=== PATIENT | male | born 1965 | race Caucasian/White ===

== ENCOUNTER 2016-11-25 14:24 | Emergency (ER) | payer SELFPAY ==
[~2016-11-25] VITALS: Ht 172.7 cm; Wt 111.1 kg
[2016-11-25 14:44] VITALS: BP 134/86
[2016-11-25 17:43] LABS: Urine Blood Negative /uL (Negative); Urine Color Brown (Yellow); Urine Glucose Normal (Normal); Urine Ketone Negative (Negative); Urine Mucus FEW (None Seen); Urine Nitrite Negative (Negative); Urine RBC 1 /hpf (0 - 3); Urine Urobilinogen >12.0 mg/dL (Negative); Urine pH 5.5 (5.0-8.0)
[2016-11-25 17:43] LABS: Basophils # (auto) 0 uL; Basophils % (auto) 0.7 % (0.0-2.0); CONDITION Y; Eosinophils # (auto) 0.1 uL; Eosinophils % (auto) 4.4 % (0.0-7.0); Hematocrit 51.4 % (41.0-53.0); Hemoglobin 17.7 g/dL (13.5-17.5); Lymphocytes # (auto) 0.7 uL; Lymphocytes % (auto) 20.6 % (10.0-50.0); Mean Corpuscular Hemoglobin 29.5 pg (28.0-32.0); Mean Corpuscular Hgb Conc. 34.4 g/dL (32.0-36.0); Mean Corpuscular Volume 85.9 fL (80.0-100.0); Mean Platelet Volume 10.5 fL (7.4-10.4); Monocytes # (auto) 0.2 uL; Monocytes % (auto) 6.2 % (0.0-12.0); Neutrophils # (auto) 2.2 uL; Neutrophils % (auto) 68.1 % (37.0-80.0); Platelet Count (auto) 69 10^3/uL (140-450); Red Cell Distribution Width 13.5 % (11.6-16.0); White Blood Cell 3.3 10^3/uL (4.4-10.8)
[2016-11-25 17:47] LABS: Urine Bilirubin Negative (Negative)
[2016-11-25 17:57] LABS: Albumin 3.5 g/dL (3.4-5.0); BUN/Creatinine Ratio 14.3; Calcium 8.7 mg/dL (8.5-10.1)
[2016-11-25 17:59] LABS: Bilirubin, Total 3.9 mg/dL (0.2-1.0); Total Protein 7.1 g/dL (6.4-8.2)
[2016-11-25 18:05] LABS: Potassium 4.2 mmol/L (3.5-5.1)
== END 2016-11-26 01:48 | disposition left against medical advice (07) ==
LOC: ER 14:29
DX: M79.89 Other specified soft tissue disorders (principal); Z53.21 Procedure and treatment not carried out due to patient leaving prior to being seen by health care provider
CPT/HCPCS: 36415; 80053; 81001; 85025

== ENCOUNTER 2017-09-04 12:11 | Emergency (ER) | payer SELFPAY ==
[~2017-09-04] VITALS: Ht 175.3 cm; Wt 103.9 kg
[2017-09-04] MEDS ORDERED: KETOROLAC TROMETH 30 MG/ML 1ML VIAL IV ONE (12:30)
[2017-09-04] MEDS ORDERED: ONDANSETRON HCL 4 MG/2 ML VIAL IV ONE (12:30)
[2017-09-04 12:37] VITALS: BP 160/92
[2017-09-04 12:40] LABS: Basophils # (auto) 0 uL; Basophils % (auto) 0.4 % (0.0-2.0); Eosinophils # (auto) 0 uL; Eosinophils % (auto) 0.7 % (0.0-7.0); Hematocrit 51.7 % (41.0-53.0); Hemoglobin 17.6 g/dL (13.5-17.5); Lymphocytes # (auto) 0.9 uL; Lymphocytes % (auto) 12.4 % (10.0-50.0); Mean Corpuscular Hemoglobin 29.9 pg (28.0-32.0); Mean Corpuscular Hgb Conc. 34.2 g/dL (32.0-36.0); Mean Corpuscular Volume 87.4 fL (80.0-100.0); Monocytes # (auto) 0.5 uL; Monocytes % (auto) 6.2 % (0.0-12.0); Neutrophils # (auto) 5.9 uL; Neutrophils % (auto) 80.3 % (37.0-80.0); Platelet Count (auto) 200 10^3/uL (140-450); Red Blood Cells 5.91 10^6/uL (4.5-5.90); Red Cell Distribution Width 12.8 % (11.8-14.3); White Blood Cell 7.4 10^3/uL (4.4-10.8)
[2017-09-04] MEDS ORDERED: SODIUM CHLORIDE 0.9% 1,000 ML IV ONE (12:45)
[2017-09-04 13:04] LABS: Albumin 4.2 g/dL (3.4-5.0); BUN/Creatinine Ratio 16.8; Calcium 9.2 mg/dL (8.5-10.1); Potassium 4.4 mmol/L (3.5-5.1)
[2017-09-04 13:07] LABS: Bilirubin, Total 1.4 mg/dL (0.2-1.0); Total Protein 7.8 g/dL (6.4-8.2)
[2017-09-04 14:18] LABS: Urine Bacteria NONE SEEN /hpf (None Seen); Urine Blood Negative /uL (Negative); Urine Specific Gravity 1.024 (1.001-1.035); Urine Sperm PRESENT /hpf (None Seen); Urine WBC <1 /hpf (0 - 3)
== END 2017-09-04 14:40 | disposition home or self-care (01) ==
LOC: ER 12:11
DX: N20.0 Calculus of kidney (principal); F17.210 Nicotine dependence, cigarettes, uncomplicated
CPT/HCPCS: 36415; 74176; 80053; 81001; 85025; 96361; 96374; 96375; 99285; J1885; J2405; J7030

== ENCOUNTER 2021-02-21 18:03 | Inpatient (IN) | payer MEDICAID, OTHER ==
[~2021-02-21] VITALS: Ht 170.2 cm; Wt 116.0 kg
[2021-02-21 18:47] LABS: Eosinophils # (auto) 0.2 10 ^3/uL (0-0.8); Lymphocytes # (auto) 1.5 10 ^3/uL (0.4-5.4); Neutrophils # (auto) 3.9 10 ^3/uL (1.6-8.6)
[2021-02-21 18:48] LABS: Basophils # (auto) 0.1 10 ^3/uL (0-0.2); Basophils % (auto) 1.1 % (0.0-2.0); Eosinophils % (auto) 3.4 % (0.0-7.0); Hemoglobin 18.8 g/dL (13.5-17.5); Lymphocytes % (auto) 23.5 % (10.0-50.0); Mean Corpuscular Hemoglobin 29.8 pg (28.0-32.0); Mean Corpuscular Hgb Conc. 33.3 g/dL (32.0-36.0); Mean Corpuscular Volume 89.6 fL (80.0-100.0); Monocytes # (auto) 0.7 10 ^3/uL (0-1.3); Monocytes % (auto) 11.4 % (0.0-12.0); Neutrophils % (auto) 60.6 % (37.0-80.0); Nucleated Red Blood Cells % 0.2 %; Red Blood Cells 6.32 10^6/uL (4.5-5.90); Red Cell Distribution Width 12.9 % (11.8-14.3); White Blood Cell 6.5 10^3/uL (4.4-10.8)
[2021-02-21 18:49] LABS: Hematocrit 56.6 % (41.0-53.0)
[2021-02-21 19:03] LABS: Albumin 3.8 g/dL (3.4-5.0); Calcium 9.6 mg/dL (8.5-10.1)
[2021-02-21 19:11] LABS: BUN/Creatinine Ratio 12.2; Bilirubin, Total 1.3 mg/dL (0.2-1.0); Total Protein 8.3 g/dL (6.4-8.2)
[2021-02-21] MEDS ORDERED: InsuLIN REG 1unit/0.01ml Soln (100units/ml) IV ONE (21:15)
[2021-02-21] MEDS ORDERED: SODIUM CHLORIDE 0.9% 1,000 ML IV ONE (21:15)
[2021-02-22] MEDS ORDERED: InsuLIN REG 1unit/0.01ml Soln (100units/ml) IV ONE (02:45)
[2021-02-22 03:39] LABS: BUN/Creatinine Ratio 13.9; Calcium 8.8 mg/dL (8.5-10.1); Potassium 3.7 mmol/L (3.5-5.1)
[2021-02-22] MEDS ORDERED: ACETAMINOPHEN 325 MG TAB PO PRN (05:30)
[2021-02-22] MEDS ORDERED: ONDANSETRON HCL 4 MG/2 ML VIAL IV PRN (05:30)
[2021-02-22] MEDS ORDERED: TEMAZEPAM 15 MG CAP PO PRN (05:30)
[2021-02-22] MEDS ORDERED: DEXTROSE (50%) 50ML SYRG IV PRN (05:30)
[2021-02-22] MEDS: SODIUM CHLORIDE 0.9% 1,000 ML IV SCH ×2 (06:24→22:00)
[2021-02-22] MEDS: ACCU-CHEK COMFORT CURVE STRIP VI SCH ×4 (08:27→20:02)
[2021-02-22] MEDS: InsuLIN REG 1unit/0.01ml Soln (100units/ml) SC SCH ×4 (08:30→20:03)
[2021-02-22] MEDS: amLODIPine BESYLATE 5 MG TAB PO SCH (10:00)
[2021-02-22] MEDS: PANTOPRAZOLE 40 MG TAB PO SCH (10:00)
[2021-02-22 22:23] VITALS: BP 144/89
[2021-02-22 22:37] VITALS: BP 154/94
[2021-02-23] MEDS: ACCU-CHEK COMFORT CURVE STRIP VI SCH ×6 (03:27→23:35)
[2021-02-23] MEDS: InsuLIN REG 1unit/0.01ml Soln (100units/ml) SC SCH ×6 (03:30→23:35)
[2021-02-23 05:00] VITALS: BP 120/69
[2021-02-23 06:53] LABS: Basophils # (auto) 0 10 ^3/uL (0-0.2); Basophils % (auto) 0.8 % (0.0-2.0); Eosinophils # (auto) 0.3 10 ^3/uL (0-0.8); Eosinophils % (auto) 5.4 % (0.0-7.0); Hematocrit 50.7 % (41.0-53.0); Hemoglobin 17.6 g/dL (13.5-17.5); Lymphocytes # (auto) 1.8 10 ^3/uL (0.4-5.4); Lymphocytes % (auto) 30.8 % (10.0-50.0); Mean Corpuscular Hemoglobin 30.5 pg (28.0-32.0); Mean Corpuscular Hgb Conc. 34.7 g/dL (32.0-36.0); Mean Corpuscular Volume 87.8 fL (80.0-100.0); Monocytes # (auto) 0.7 10 ^3/uL (0-1.3); Monocytes % (auto) 12.2 % (0.0-12.0); Neutrophils # (auto) 3.1 10 ^3/uL (1.6-8.6); Neutrophils % (auto) 50.8 % (37.0-80.0); Nucleated Red Blood Cells % 0.1 %; Red Blood Cells 5.77 10^6/uL (4.5-5.90); Red Cell Distribution Width 12.7 % (11.8-14.3)
[2021-02-23 07:06] LABS: BUN/Creatinine Ratio 19.4; Calcium 8.6 mg/dL (8.5-10.1); Potassium 3.5 mmol/L (3.5-5.1)
[2021-02-23] MEDS: SODIUM CHLORIDE 0.9% 1,000 ML IV SCH (08:40)
[2021-02-23] MEDS: amLODIPine BESYLATE 5 MG TAB PO SCH (08:59)
[2021-02-23] MEDS: PANTOPRAZOLE 40 MG TAB PO SCH (08:59)
[2021-02-23 09:00] VITALS: BP 125/75
[2021-02-23] MEDS ORDERED: INSULIN LANTUS (GLARGINE) 1 /0.01ml (100units/ml) SC ONE (12:00)
[2021-02-23 13:00] VITALS: BP 153/96
[2021-02-23] MEDS ORDERED: DEXTROSE (50%) 50ML SYRG IV PRN (13:30)
[2021-02-23] MEDS ORDERED: LOSARTAN POTASSIUM 25 MG TAB PO ONE (13:30)
[2021-02-23 17:00] VITALS: BP 130/66
[2021-02-23 17:09] LABS: Urine Bacteria NONE SEEN /hpf (None Seen); Urine Blood Negative /uL (Negative); Urine Specific Gravity 1.026 (1.001-1.035); Urine WBC 3 /hpf (0 - 3)
[2021-02-23] MEDS: metFORMIN HYDROCHLORIDE 500 MG TAB PO SCH (17:47)
[2021-02-23] MEDS: glipiZIDE 5 MG TAB PO SCH (17:48)
[2021-02-23 19:22] LABS: Amphetamine Screen, Urine POSITIVE (NEGATIVE); Barbiturate Scree,Urine NEGATIVE (NEGATIVE); Benzodiazephine Screen, Urine NEGATIVE (NEGATIVE); Cannabinoid Screen, Urine NEGATIVE (NEGATIVE); Cocaine Screen, Urine NEGATIVE (NEGATIVE); Opiate Scree,Urine NEGATIVE (NEGATIVE); Phencyclidine Screen, Urine NEGATIVE (NEGATIVE)
[2021-02-23 22:00] VITALS: BP 152/98
[2021-02-23] MEDS ORDERED: INSULIN LANTUS (GLARGINE) 1 /0.01ml (100units/ml) SC SCH (22:00)
[2021-02-24 05:00] VITALS: BP 145/101
[2021-02-24] MEDS: InsuLIN REG 1unit/0.01ml Soln (100units/ml) SC SCH ×2 (06:03→11:50)
[2021-02-24] MEDS: ACCU-CHEK COMFORT CURVE STRIP VI SCH ×2 (06:03→11:49)
[2021-02-24] MEDS: glipiZIDE 5 MG TAB PO SCH (06:49)
[2021-02-24 07:04] LABS: BUN/Creatinine Ratio 18.1; Calcium 8.6 mg/dL (8.5-10.1); Potassium 3.9 mmol/L (3.5-5.1)
[2021-02-24] MEDS: metFORMIN HYDROCHLORIDE 500 MG TAB PO SCH (08:04)
[2021-02-24] MEDS: PANTOPRAZOLE 40 MG TAB PO SCH (08:30)
[2021-02-24 09:00] VITALS: BP 134/91
[2021-02-24] MEDS ORDERED: LOSARTAN POTASSIUM 25 MG TAB PO SCH (10:00)
[2021-02-24 13:20] VITALS: BP 146/104
== END 2021-02-24 14:10 | disposition home or self-care (01) | DRG 420 ==
LOC: ER 18:09 → OVERFLOW 02-22 05:20 → WEST WING 02-22 19:35
PROVIDERS: ADMIT Nurse Practitioner; ATTEND Internal Medicine
DX: E11.65 Type 2 diabetes mellitus with hyperglycemia (principal); N17.0 Acute kidney failure with tubular necrosis; K76.0 Fatty (change of) liver, not elsewhere classified; Z68.41 Body mass index [BMI] 40.0-44.9, adult; I10 Essential (primary) hypertension; E66.01 Morbid (severe) obesity due to excess calories; F17.210 Nicotine dependence, cigarettes, uncomplicated; Z82.49 Family history of ischemic heart disease and other diseases of the circulatory system
CPT/HCPCS: 36415; 71045; 74176; 80048; 80053; 80307; 81001; 82010; 82962; 83036; 83690; 83880; 85025; 87426; 93005; 96361; 96374; 96376; G0378; J1815

== ENCOUNTER 2021-10-17 20:55 | Emergency (ER) | payer MEDICAID ==
[~2021-10-17] VITALS: Ht 167.6 cm; Wt 102.1 kg
[2021-10-17 20:57] VITALS: BP 126/93
[2021-10-18] MEDS ORDERED: CIPR-273 PO (01:20)
== END 2021-10-18 01:35 | disposition home or self-care (01) ==
LOC: ER 20:55
DX: H60.91 Unspecified otitis externa, right ear (principal); F17.210 Nicotine dependence, cigarettes, uncomplicated

== ENCOUNTER 2022-03-21 22:52 | Emergency (ER) | payer MEDICAID ==
[~2022-03-21] VITALS: Ht 170.2 cm; Wt 104.0 kg
[~2022-03-21 22:52] MED LIST: CIPR-273 PO
[2022-03-22] MEDS ORDERED: CIPR1SUS8 OT (00:55)
[2022-03-22] MEDS ORDERED: AMOX-277 PO (00:55)
[2022-03-22] MEDS ORDERED: HYDROcodone-ACET 5/325MG TAB PO ONE (01:00)
[2022-03-22 02:30] VITALS: BP 151/109
== END 2022-03-22 02:33 | disposition home or self-care (01) ==
LOC: ER 22:52
DX: H60.91 Unspecified otitis externa, right ear (principal); F17.210 Nicotine dependence, cigarettes, uncomplicated; H66.91 Otitis media, unspecified, right ear

== ENCOUNTER 2023-03-23 13:52 | Inpatient (IN) | payer MEDICAID ==
[~2023-03-23] VITALS: Ht 170.2 cm; Wt 102.4 kg
[~2023-03-23 13:52] MED LIST changes: +AMOX875T4 PO; +CIPR1SUS8 OT
[2023-03-23] MEDS ORDERED: MORPHINE SULFATE 4 MG/ML SYR/VIAL IV ONE (14:30)
[2023-03-23] MEDS ORDERED: ONDANSETRON HCL 4 MG/2 ML VIAL IV ONE (14:30)
[2023-03-23] MEDS ORDERED: SODIUM CHLORIDE 0.9% 1,000 ML IVB ONE (14:30)
[2023-03-23 15:00] LABS: Basophils # (auto) 0.1 10 ^3/uL (0-0.2); Eosinophils # (auto) 0.2 10 ^3/uL (0-0.8); Mean Corpuscular Hemoglobin 29.7 pg (28.0-32.0)
[2023-03-23 15:03] LABS: Basophils % (auto) 0.7 % (0.0-2.0); Eosinophils % (auto) 1.5 % (0.0-7.0); Hemoglobin 19.1 g/dL (13.5-17.5); Lymphocytes # (auto) 2.1 10 ^3/uL (0.4-5.4); Lymphocytes % (auto) 20.1 % (10.0-50.0); Mean Corpuscular Hgb Conc. 33.8 g/dL (32.0-36.0); Monocytes % (auto) 9.3 % (0.0-12.0); Neutrophils # (auto) 7.2 10 ^3/uL (1.6-8.6); Neutrophils % (auto) 68.4 % (37.0-80.0); Nucleated Red Blood Cells % 0.4 %; Red Blood Cells 6.43 10^6/uL (4.5-5.90); Red Cell Distribution Width 12.9 % (11.8-14.3); White Blood Cell 10.6 10^3/uL (4.4-10.8)
[2023-03-23 15:08] LABS: Hematocrit 56.6 % (41.0-53.0)
[2023-03-23 15:13] LABS: Alanine Aminotransferase 94 U/L (7-40); Albumin 4.3 g/dL (3.2-4.8); Alkaline Phosphatase 109 U/L (46-116); Anion Gap 11 (5-15); Aspartate Aminotransferase 44 U/L (13-40); BUN/Creatinine Ratio 16.1 (10.0-20.0); Blood Alcohol 4.5 mg/dL (<10); Blood Urea Nitrogen 28 mg/dL (9-23); Calcium 9.9 mg/dL (8.7-10.4); Carbon Dioxide 21 mmol/L (20-30); Chloride 93 mmol/L (98-107); Lipase 73 U/L (12-53); Potassium 4.7 mmol/L (3.5-5.1); Sodium 125 mmol/L (136-145)
[2023-03-23 15:14] LABS: Bilirubin, Total 1.6 mg/dL (0.2-1.0); Total Protein 8.2 g/dL (5.7-8.2)
[2023-03-23 15:16] LABS: INR 1.05 (0.9-1.15); Partial Thromboplastin Time 23.6 SEC (24.5-34.5)
[2023-03-23 15:33] LABS: Glucose 720 mg/dL (74-106)
[2023-03-23] MEDS ORDERED: DEXTROSE (50%) 50ML SYRG IV PRN (17:30)
[2023-03-23] MEDS ORDERED: NITROGLYCERIN 0.4 MG SL TAB SL PRN (17:30)
[2023-03-23] MEDS ORDERED: hydrALAZINE HCL 20 MG/ML VL IV PRN (17:45)
[2023-03-23 18:02] LABS: Base Excess -3.6 mmol/L (-2.0-2.0)
[2023-03-23 18:14] LABS: Anion Gap 11 (5-15); Carbon Dioxide 19 mmol/L (20-30); Chloride 96 mmol/L (98-107); Sodium 126 mmol/L (136-145)
[2023-03-23 18:15] LABS: Calcium 9.2 mg/dL (8.7-10.4)
[2023-03-23 18:20] LABS: BUN/Creatinine Ratio 16.3 (10.0-20.0); Blood Urea Nitrogen 28 mg/dL (9-23)
[2023-03-23 18:51] LABS: Glucose 696 mg/dL (74-106); Potassium 5.7 mmol/L (3.5-5.1)
[2023-03-23] MEDS: SODIUM CHLORIDE 0.9% 1,000 ML IV SCH ×3 (19:10→23:46)
[2023-03-23 19:56] VITALS: PULSE 102; RESP 20; O2SAT 91
[2023-03-23] MEDS: INSULIN DRIP 100 UNIT/100ML 100 ML IV SCH (20:22)
[2023-03-23] MEDS: ACCU-CHEK COMFORT CURVE STRIP VI SCH ×5 (20:24→23:46)
[2023-03-23] MEDS ORDERED: SODIUM CHLORIDE 0.9% 1,000 ML IV SCH (21:30)
[2023-03-23] MEDS ORDERED: MORPHINE SULFATE INJ 2 MG/ml SYRG IV PRN (21:45)
[2023-03-23] MEDS: ONDANSETRON HCL 4 MG/2 ML VIAL IV PRN (21:46)
[2023-03-23] MEDS: MORPHINE SULFATE INJ 2 MG/ml SYRG IV PRN (21:46)
[2023-03-23 21:49] LABS: Chloride 96 mmol/L (98-107); Potassium 5.2 mmol/L (3.5-5.1); Sodium 129 mmol/L (136-145)
[2023-03-23 21:50] LABS: Anion Gap 15 (5-15); Carbon Dioxide 18 mmol/L (20-30)
[2023-03-23 21:51] LABS: Calcium 9.4 mg/dL (8.7-10.4)
[2023-03-23 21:57] LABS: BUN/Creatinine Ratio 15.9 (10.0-20.0); Blood Urea Nitrogen 29 mg/dL (9-23)
[2023-03-23 22:18] LABS: Glucose 702 mg/dL (74-106)
[2023-03-23 22:29] LABS: Amphetamine Screen, Urine Pos (NEGATIVE); Barbiturate Scree,Urine Neg (NEGATIVE); Benzodiazephine Screen, Urine Neg (NEGATIVE); Cannabinoid Screen, Urine Neg (NEGATIVE); Cocaine Screen, Urine Neg (NEGATIVE); Opiate Scree,Urine Neg (NEGATIVE); Phencyclidine Screen, Urine Neg (NEGATIVE)
[2023-03-23 22:34] LABS: Urine Bacteria NONE SEEN /hpf (None Seen); Urine Blood Negative /uL (Negative); Urine Clarity Clear (Clear); Urine Color Colorless (Yellow); Urine Protein, UAD Negative (Negative); Urine Specific Gravity 1.028 (1.001-1.035); Urine Urobilinogen Normal (Negative); Urine WBC 1 /hpf (0 - 3)
[2023-03-24 00:11] LABS: BUN/Creatinine Ratio 18.3 (10.0-20.0); Blood Urea Nitrogen 30 mg/dL (9-23)
[2023-03-24] MEDS ORDERED: hydrALAZINE HCL 20 MG/ML VL IV PRN (00:15)
[2023-03-24 01:42] LABS: Anion Gap 9 (5-15); Carbon Dioxide 23 mmol/L (20-30); Chloride 103 mmol/L (98-107); Potassium 4.1 mmol/L (3.5-5.1); Sodium 135 mmol/L (136-145)
[2023-03-24 01:46] LABS: Glucose 583 mg/dL (74-106)
[2023-03-24] MEDS: ACCU-CHEK COMFORT CURVE STRIP VI SCH ×15 (01:47→22:30)
[2023-03-24 02:43] LABS: Chloride 105 mmol/L (98-107); Potassium 4.2 mmol/L (3.5-5.1); Sodium 137 mmol/L (136-145)
[2023-03-24 02:44] LABS: Anion Gap 9 (5-15); Carbon Dioxide 23 mmol/L (20-30)
[2023-03-24 02:45] LABS: Calcium 9.4 mg/dL (8.7-10.4)
[2023-03-24] MEDS: ONDANSETRON HCL 4 MG/2 ML VIAL IV PRN (02:46)
[2023-03-24] MEDS: MORPHINE SULFATE INJ 2 MG/ml SYRG IV PRN ×2 (02:46→19:51)
[2023-03-24 02:50] LABS: BUN/Creatinine Ratio 17.3 (10.0-20.0); Blood Urea Nitrogen 26 mg/dL (9-23)
[2023-03-24 03:22] LABS: Glucose 487 mg/dL (74-106)
[2023-03-24] MEDS ORDERED: HYDROmorphone HCL 2 MG/ML VL/or syr IV PRN (04:00)
[2023-03-24] MEDS: HYDROmorphone HCL 2 MG/ML VL/or syr IV PRN ×4 (04:27→20:41)
[2023-03-24 05:05] LABS: Basophils # (auto) 0 10 ^3/uL (0-0.2); Basophils % (auto) 0.3 % (0.0-2.0); Eosinophils # (auto) 0 10 ^3/uL (0-0.8); Monocytes # (auto) 1.1 10 ^3/uL (0-1.3); Monocytes % (auto) 7.4 % (0.0-12.0)
[2023-03-24 05:06] LABS: Hematocrit 53.9 % (41.0-53.0); Hemoglobin 18.3 g/dL (13.5-17.5); Lymphocytes # (auto) 1.1 10 ^3/uL (0.4-5.4); Lymphocytes % (auto) 7.8 % (10.0-50.0); Mean Corpuscular Hemoglobin 29.3 pg (28.0-32.0); Mean Corpuscular Hgb Conc. 33.9 g/dL (32.0-36.0); Mean Corpuscular Volume 86.6 fL (80.0-100.0); Neutrophils # (auto) 12.3 10 ^3/uL (1.6-8.6); Neutrophils % (auto) 84.5 % (37.0-80.0); Red Blood Cells 6.23 10^6/uL (4.5-5.90); Red Cell Distribution Width 12.7 % (11.8-14.3); White Blood Cell 14.6 10^3/uL (4.4-10.8)
[2023-03-24 05:15] LABS: Alanine Aminotransferase 76 U/L (7-40); Albumin 3.9 g/dL (3.2-4.8); Alkaline Phosphatase 87 U/L (46-116); Aspartate Aminotransferase 34 U/L (13-40); BUN/Creatinine Ratio 16.5 (10.0-20.0); Bilirubin, Total 1.4 mg/dL (0.2-1.0); Blood Urea Nitrogen 23 mg/dL (9-23); Calcium 9.1 mg/dL (8.5-10.1); Chloride 108 mmol/L (98-107); Cholesterol 167 mg/dL (< 200); HDL Cholesterol 39 mg/dL (40-59); LDL Cholesterol 108 mg/dL (< 100); Potassium 3.9 mmol/L (3.5-5.1); Sodium 141 mmol/L (136-145); Total Protein 7.3 g/dL (5.7-8.2); Triglycerides 165 mg/dL (< 150)
[2023-03-24 05:45] LABS: Glucose 411 mg/dL (74-106)
[2023-03-24] MEDS ORDERED: hydrALAZINE HCL 20 MG/ML VL IV ONE (06:15)
[2023-03-24] MEDS: SODIUM CHLORIDE 0.9% 1,000 ML IV SCH ×3 (06:23→20:40)
[2023-03-24] MEDS: amLODIPine BESYLATE 5 MG TAB PO SCH ×3 (06:44→11:35)
[2023-03-24 07:56] LABS: Anion Gap 9 (5-15); Carbon Dioxide 24 mmol/L (20-30)
[2023-03-24 08:00] VITALS: PULSE 119; RESP 18; O2SAT 94
[2023-03-24] MEDS ORDERED: PANTOPRAZOLE 40 MG/10 ML VIAL INJ IV SCH (10:00)
[2023-03-24] MEDS ORDERED: amLODIPine BESYLATE 5 MG TAB PO SCH (10:00)
[2023-03-24] MEDS ORDERED: METOPROLOL TARTRATE 25 MG TAB PO ONE (11:15)
[2023-03-24] MEDS: INSULIN DRIP 100 UNIT/100ML 100 ML IV SCH (12:44)
[2023-03-24 19:30] VITALS: PULSE 101; RESP 21; O2SAT 94
[2023-03-24 20:40] LABS: Chloride 115 mmol/L (98-107); Potassium 4.2 mmol/L (3.5-5.1); Sodium 145 mmol/L (136-145)
[2023-03-24 20:41] LABS: Anion Gap 11 (5-15); Calcium 8.7 mg/dL (8.5-10.1); Carbon Dioxide 19 mmol/L (20-30)
[2023-03-24 20:46] LABS: BUN/Creatinine Ratio 18.9 (10.0-20.0); Blood Urea Nitrogen 31 mg/dL (9-23); Glucose 249 mg/dL (74-106)
[2023-03-24] MEDS: ATORVASTATIN 20 MG TAB PO SCH (22:53)
[2023-03-25] VITALS (39 sets, daily range): BP systolic 60–152; BP diastolic 30–104; PULSE 70–125; RESP 11–58; TEMP 98.7–100.4; O2SAT 50–96
[2023-03-25] MEDS ORDERED: PANTOPRAZOLE 40 MG/10 ML VIAL INJ IV ONE (01:00)
[2023-03-25 02:09] LABS: Basophils # (auto) 0 10 ^3/uL (0-0.2); Basophils % (auto) 0.1 % (0.0-2.0); Eosinophils # (auto) 0 10 ^3/uL (0-0.8); Hemoglobin 18.8 g/dL (13.5-17.5); Monocytes # (auto) 0.8 10 ^3/uL (0-1.3); Neutrophils # (auto) 8.9 10 ^3/uL (1.6-8.6); White Blood Cell 10.6 10^3/uL (4.4-10.8)
[2023-03-25 02:11] LABS: Mean Corpuscular Hemoglobin 29.9 pg (28.0-32.0); Mean Corpuscular Hgb Conc. 33.2 g/dL (32.0-36.0); Mean Corpuscular Volume 90.2 fL (80.0-100.0); Monocytes % (auto) 7.1 % (0.0-12.0); Neutrophils % (auto) 83.8 % (37.0-80.0); Nucleated Red Blood Cells % 0.3 %; Red Blood Cells 6.28 10^6/uL (4.5-5.90); Red Cell Distribution Width 13.1 % (11.8-14.3)
[2023-03-25 02:12] LABS: Hematocrit 56.6 % (41.0-53.0)
[2023-03-25] MEDS ORDERED: ACETAMINOPHEN 325 MG TAB PO PRN (02:30)
[2023-03-25] MEDS ORDERED: VANCOMYCIN 1GM/250ML 250 ML IV ONE (02:30)
[2023-03-25] MEDS ORDERED: LACTATED RINGER'S 1,000 ML IV ONE (02:30)
[2023-03-25] MEDS ORDERED: PIPERACILLIN-TAZOB 3.375GM 100 ML IV ONE (02:30)
[2023-03-25 02:41] LABS: Base Excess -12.2 mmol/L (-2.0-2.0)
[2023-03-25] MEDS: LACTATED RINGER'S 1,000 ML IV SCH ×3 (03:11→20:23)
[2023-03-25] MEDS ORDERED: OCTREOTIDE ACETATE 500 MCG/ML VL ONE (03:17)
[2023-03-25] MEDS: OCTREOTIDE ACETATE 500 MCG in SODIUM CHL 0.9% 99 ML IV SCH ×3 (03:20→20:23)
[2023-03-25 03:45] LABS: Lactic Acid w/Reflex 9.5 mmol/L (0.4-2.0)
[2023-03-25] MEDS: ACCU-CHEK COMFORT CURVE STRIP VI SCH ×12 (04:00→22:37)
[2023-03-25] MEDS: InsuLIN REG 1unit/0.01ml Soln (100units/ml) SC SCH ×2 (04:20→08:03)
[2023-03-25 05:39] LABS: Basophils # (auto) 0 10 ^3/uL (0-0.2); Basophils % (auto) 0.1 % (0.0-2.0); Eosinophils # (auto) 0 10 ^3/uL (0-0.8); Lymphocytes # (auto) 0.8 10 ^3/uL (0.4-5.4)
[2023-03-25 05:42] LABS: Hemoglobin 17.9 g/dL (13.5-17.5); Lymphocytes % (auto) 9.3 % (10.0-50.0); Mean Corpuscular Hemoglobin 29.8 pg (28.0-32.0); Mean Corpuscular Hgb Conc. 32.5 g/dL (32.0-36.0); Mean Corpuscular Volume 91.8 fL (80.0-100.0); Monocytes # (auto) 0.6 10 ^3/uL (0-1.3); Monocytes % (auto) 7.6 % (0.0-12.0); Neutrophils # (auto) 7.1 10 ^3/uL (1.6-8.6); Nucleated Red Blood Cells % 0.3 %; Red Blood Cells 5.99 10^6/uL (4.5-5.90); Red Cell Distribution Width 13.3 % (11.8-14.3); White Blood Cell 8.5 10^3/uL (4.4-10.8)
[2023-03-25 05:46] LABS: Base Excess -8.3 mmol/L (-2.0-2.0)
[2023-03-25] MEDS ORDERED: SODIUM BICARBONATE 8.4 % INJ 50ML VIAL IV ONE (06:00)
[2023-03-25 06:16] LABS: Alanine Aminotransferase 94 U/L (7-40); Albumin 3.1 g/dL (3.2-4.8); Alkaline Phosphatase 73 U/L (46-116); Anion Gap 15 (5-15); Aspartate Aminotransferase 159 U/L (13-40); BUN/Creatinine Ratio 16.4 (10.0-20.0); Blood Urea Nitrogen 33 mg/dL (9-23); Calcium 8.2 mg/dL (8.7-10.4); Carbon Dioxide 12 mmol/L (20-30); Chloride 112 mmol/L (98-107); Potassium 5.4 mmol/L (3.5-5.1)
[2023-03-25 06:17] LABS: Bilirubin, Total 6.5 mg/dL (0.2-1.0); Total Protein 5.9 g/dL (5.7-8.2)
[2023-03-25 06:38] LABS: Sodium 139 mmol/L (136-145)
[2023-03-25 06:41] LABS: Glucose 424 mg/dL (74-106)
[2023-03-25] MEDS ORDERED: InsuLIN REG 1unit/0.01ml Soln (100units/ml) SC ONE (07:00)
[2023-03-25] MEDS ORDERED: ACCU-CHEK COMFORT CURVE STRIP VI ONE (07:00)
[2023-03-25] MEDS: HYDROmorphone HCL 2 MG/ML VL/or syr IV PRN ×3 (07:52→16:43)
[2023-03-25] MEDS: INSULIN LANTUS (GLARGINE) 1 /0.01ml (100units/ml) SC SCH ×2 (08:02→22:00)
[2023-03-25] MEDS: PANTOPRAZOLE 40 MG/10 ML VIAL INJ IV SCH ×2 (09:37→22:37)
[2023-03-25 09:40] LABS: Hemoglobin 17.8 g/dL (13.5-17.5); Mean Corpuscular Hemoglobin 29.9 pg (28.0-32.0)
[2023-03-25] MEDS: INSULIN DRIP 100 UNIT/100ML 100 ML IV SCH (09:40)
[2023-03-25 09:42] LABS: Hematocrit 52.8 % (41.0-53.0); Mean Corpuscular Hgb Conc. 33.7 g/dL (32.0-36.0); Mean Corpuscular Volume 88.8 fL (80.0-100.0); Red Blood Cells 5.95 10^6/uL (4.5-5.90); Red Cell Distribution Width 12.9 % (11.8-14.3); White Blood Cell 7.6 10^3/uL (4.4-10.8)
[2023-03-25 09:46] LABS: Basophils % (manual) 0 (0.0-2.0); Blast Cells 0; Eosinophils % (manual) 0 (0-7); Myelocytes % 0; Promyelocytes % 0; Reactive Lymphocytes 0
[2023-03-25 09:49] LABS: Chloride 113 mmol/L (98-107); Potassium 5.1 mmol/L (3.5-5.1)
[2023-03-25 09:50] LABS: Anion Gap 13 (5-15); Calcium 8.5 mg/dL (8.5-10.1); Carbon Dioxide 21 mmol/L (20-30)
[2023-03-25 09:52] LABS: INR 1.31 (0.9-1.15); Partial Thromboplastin Time 29.4 SEC (24.5-34.5); Prothrombin Time 13.5 sec (9.3-11.8)
[2023-03-25 09:55] LABS: BUN/Creatinine Ratio 21.7 (10.0-20.0)
[2023-03-25] MEDS: amLODIPine BESYLATE 5 MG TAB PO SCH (10:00)
[2023-03-25 10:15] LABS: Blood Urea Nitrogen 43 mg/dL (9-23); Glucose 286 mg/dL (74-106); Sodium 147 mmol/L (136-145)
[2023-03-25] MEDS ORDERED: CLINIMIX PER PHARMACY 0 ML IV SCH (10:15)
[2023-03-25 11:02] LABS: Band Neutrophils % (manual) 39; Lymphocytes % (manual) 14 (10.0-50.0); Metamyelocytes % 2; Monocytes % (manual) 8 (0-12); Platelet Estimate Adequate; RBC Morphology Normal
[2023-03-25 12:01] LABS: Magnesium 1.9 mg/dL (1.6-2.6); Phosphorus 3.4 mg/dL (2.4-5.1)
[2023-03-25 15:20] LABS: COVID19 ANTIGEN SOFIA FIA NEGATIVE (NEGATIVE)
[2023-03-25] MEDS: DEXTROSE (50%) 50ML SYRG IV PRN ×3 (18:06→21:36)
[2023-03-25] MEDS ORDERED: AMINO ACID INFUSION IN D10W 1,000 ML IV NR (20:00)
[2023-03-25] MEDS: ATORVASTATIN 20 MG TAB PO SCH (22:00)
[2023-03-25] MEDS ORDERED: D5W 5% 1,000 ML IV SCH (22:30)
[2023-03-25] MEDS ORDERED: SUCCINYLCHOLINE CHLORIDE 20 MG/ML 10ML VIAL IV ONE ×2 (22:47→23:45)
[2023-03-25] MEDS ORDERED: ETOMIDATE (2MG/ML) 20ML VIAL IV ONE ×2 (22:47→23:45)
[2023-03-25] MEDS ORDERED: AMIODARONE 450mg/250ml AE 250 ML IV ONE (23:03)
[2023-03-25] MEDS ORDERED: MIDAZOLAM DRIP 50 mg/50mL 50 ML IV ONE (23:06)
[2023-03-25] MEDS ORDERED: PHENYLEPHRINE IV 250 ML IV ONE (23:06)
[2023-03-25] MEDS ORDERED: NOREPINEPHRINE 8 MG/250ML KIT 250 ML IV ONE (23:27)
[2023-03-25] MEDS ORDERED: MIDAZOLAM DRIP 50 mg/50mL 50 ML IV SCH (23:30)
[2023-03-25] MEDS: NOREPINEPHRINE 8 MG/250ML KIT 250 ML IV SCH (23:42)
[2023-03-25] MEDS: PHENYLEPHRINE IV 250 ML IV SCH (23:42)
[2023-03-26] VITALS (68 sets, daily range): BP systolic 31–248; BP diastolic 15–150; PULSE 31–97; RESP 18–34; TEMP 98.2–99.9; O2SAT 36–100
[2023-03-26 00:06] LABS: Base Excess -18.6 mmol/L (-2.0-2.0)
[2023-03-26] MEDS: ACCU-CHEK COMFORT CURVE STRIP VI SCH ×11 (00:08→15:11)
[2023-03-26 00:14] LABS: Hematocrit 45.8 % (41.0-53.0); Hemoglobin 14.2 g/dL (13.5-17.5); Red Blood Cells 4.77 10^6/uL (4.5-5.90)
[2023-03-26 00:16] LABS: Mean Corpuscular Hemoglobin 29.8 pg (28.0-32.0); Mean Corpuscular Hgb Conc. 31.1 g/dL (32.0-36.0); White Blood Cell 8.5 10^3/uL (4.4-10.8)
[2023-03-26 00:20] LABS: Alkaline Phosphatase 127 U/L (46-116); Anion Gap 25 (5-15); Calcium 7.7 mg/dL (8.7-10.4); Carbon Dioxide 14 mmol/L (20-30); Chloride 111 mmol/L (98-107); Glucose 311 mg/dL (74-106); Magnesium 2.7 mg/dL (1.6-2.6); Sodium 150 mmol/L (136-145)
[2023-03-26 00:21] LABS: Albumin 2.2 g/dL (3.2-4.8); BUN/Creatinine Ratio 18.1 (10.0-20.0); Bilirubin, Total 5.7 mg/dL (0.2-1.0); Phosphorus 13.7 mg/dL (2.4-5.1); Total Protein 4.2 g/dL (5.7-8.2)
[2023-03-26] MEDS ORDERED: SODIUM BICARBONATE 8.4 % INJ 50ML VIAL IV ONE ×3 (00:30→07:47)
[2023-03-26] MEDS ORDERED: SODIUM BICARBONATE 50ML VIAL 50 ML in D5W 5% 1,000 ML IV SCH (00:30)
[2023-03-26 00:31] LABS: Blood Urea Nitrogen 61 mg/dL (9-23); Potassium 7.5 mmol/L (3.5-5.1)
[2023-03-26 00:32] LABS: Basophils % (manual) 0 (0.0-2.0); Blast Cells 0; Eosinophils % (manual) 0 (0-7); Promyelocytes % 0; Reactive Lymphocytes 0
[2023-03-26 00:36] LABS: Alanine Aminotransferase 2469 U/L (7-40)
[2023-03-26] MEDS ORDERED: SODIUM BICARBONATE 8.4% INJ 50ML SYRINGE ONE ×2 (00:47→01:04)
[2023-03-26] MEDS: PHENYLEPHRINE IV 250 ML IV SCH ×7 (00:54→15:06)
[2023-03-26 01:04] LABS: Aspartate Aminotransferase > 6000 U/L (13-40)
[2023-03-26 01:10] LABS: Band Neutrophils % (manual) 36; Large Platelets FEW; Lymphocytes % (manual) 12 (10.0-50.0); Metamyelocytes % 3; Monocytes % (manual) 11 (0-12); Myelocytes % 10; Platelet Estimate Decreased
[2023-03-26 01:11] LABS: Giant Platelets Few
[2023-03-26] MEDS ORDERED: CALCIUM GLUC 1,000mg/50ml-NS 50 ML IV ONE ×4 (02:15→13:15)
[2023-03-26] MEDS ORDERED: DEXTROSE (50%) 50ML SYRG IV ONE ×2 (02:15→08:45)
[2023-03-26] MEDS ORDERED: InsuLIN REG 1unit/0.01ml Soln (100units/ml) IV ONE ×2 (02:15→08:45)
[2023-03-26] MEDS ORDERED: FUROSEMIDE 20 MG/2 ML VIAL IV ONE (02:15)
[2023-03-26] MEDS ORDERED: SODIUM ZIRCONIUM CYCL 10 GM PAK PO ONE (02:15)
[2023-03-26] MEDS ORDERED: ALBUTEROL SULF 2.5 MG/0.5ML(0.5%) NEB SOLN NEB ONE ×2 (02:15→08:45)
[2023-03-26] MEDS ORDERED: SODIUM BICARBONATE 8.4% INJ 50ML SYRINGE IV ONE (02:15)
[2023-03-26] MEDS ORDERED: PROPOFOL 100 ML IV ONE (03:39)
[2023-03-26] MEDS ORDERED: PROPOFOL 100 ML IV SCH (05:45)
[2023-03-26] MEDS: NOREPINEPHRINE 8 MG/250ML KIT 250 ML IV SCH ×3 (05:54→13:26)
[2023-03-26] MEDS: INSULIN LANTUS (GLARGINE) 1 /0.01ml (100units/ml) SC SCH (06:08)
[2023-03-26] MEDS ORDERED: DOPamine 1600MCG/ML D5W 0 ML IV ONE (06:35)
[2023-03-26] MEDS: VASOPRESSIN 20 UNITS in SODIUM CHL 0.9% 99 ML IV SCH ×2 (07:00→09:24)
[2023-03-26] MEDS: DOPamine 1600MCG/ML D5W 250 ML IV SCH ×3 (07:00→13:03)
[2023-03-26 07:11] LABS: Hematocrit 51.7 % (41.0-53.0); Hemoglobin 14.4 g/dL (13.5-17.5); Mean Corpuscular Hemoglobin 29.5 pg (28.0-32.0); Mean Corpuscular Hgb Conc. 27.9 g/dL (32.0-36.0); Mean Corpuscular Volume 105.9 fL (80.0-100.0); Red Blood Cells 4.89 10^6/uL (4.5-5.90); White Blood Cell 10.1 10^3/uL (4.4-10.8)
[2023-03-26 07:16] LABS: Band Neutrophils % (manual) 0; Basophils % (manual) 0 (0.0-2.0); Blast Cells 0; Eosinophils % (manual) 0 (0-7); Metamyelocytes % 0; Promyelocytes % 0; Reactive Lymphocytes 0
[2023-03-26 07:24] LABS: Base Excess -25.6 mmol/L (-2.0-2.0)
[2023-03-26] MEDS: DEXTROSE (50%) 50ML SYRG IV PRN (07:41)
[2023-03-26] MEDS: EPINEPHrine HCL 250 ML IV SCH ×3 (07:45→13:49)
[2023-03-26] MEDS ORDERED: EPINEPHrine HCL 250 ML IV ONE (07:47)
[2023-03-26 08:02] LABS: Albumin 2.4 g/dL (3.2-4.8); Alkaline Phosphatase 269 U/L (46-116); Calcium 8.5 mg/dL (8.5-10.1); Chloride 113 mmol/L (98-107)
[2023-03-26 08:03] LABS: Bilirubin, Total 5.7 mg/dL (0.2-1.0); Phosphorus 17.9 mg/dL (2.4-5.1); Total Protein 4.5 g/dL (5.7-8.2)
[2023-03-26 08:16] LABS: Lymphocytes % (manual) 19 (10.0-50.0); Monocytes % (manual) 12 (0-12); Myelocytes % 1; Platelet Estimate Decreased
[2023-03-26 08:29] LABS: Glucose 68 mg/dL (74-106); Sodium 155 mmol/L (136-145)
[2023-03-26] MEDS: OCTREOTIDE ACETATE 500 MCG in SODIUM CHL 0.9% 99 ML IV SCH (08:30)
[2023-03-26 08:31] LABS: Carbon Dioxide < 10 mmol/L (20-30); Potassium 7.9 mmol/L (3.5-5.1)
[2023-03-26 08:32] LABS: Alanine Aminotransferase 5405 U/L (7-40); BUN/Creatinine Ratio 15.7 (10.0-20.0); Blood Urea Nitrogen 57 mg/dL (9-23)
[2023-03-26] MEDS ORDERED: DEXTROSE 50% SYRINGE 50 ML IV ONE (08:43)
[2023-03-26] MEDS: INSULIN DRIP 100 UNIT/100ML 100 ML IV SCH (08:45)
[2023-03-26 09:21] LABS: Magnesium 3.3 mg/dL (1.6-2.6)
[2023-03-26] MEDS: PANTOPRAZOLE 40 MG/10 ML VIAL INJ IV SCH (09:40)
[2023-03-26] MEDS: amLODIPine BESYLATE 5 MG TAB PO SCH (10:00)
[2023-03-26] MEDS ORDERED: BUMETANIDE 2.5mg/10ml (0.25 mg/ml) INJ IV ONE (10:15)
[2023-03-26] MEDS ORDERED: SODIUM BICARBONATE 50ML VIAL 150 ML in D5W 5% 1,000 ML IV SCH (10:15)
[2023-03-26] MEDS ORDERED: BUMETANIDE INJECTION 25 MG in GIVE UN-DILUTED 0 ML IV SCH (12:30)
[2023-03-26] MEDS ORDERED: DEXTROSE (50%) 50ML SYRG IV SCH (12:45)
[2023-03-26] MEDS ORDERED: ATROPINE SULFATE 1 MG/1 ML VIAL ONE (12:51)
[2023-03-26] MEDS ORDERED: SODIUM ZIRCONIUM CYCL 10 GM PAK PO SCH (14:00)
[2023-03-26] MEDS ORDERED: PIPERACILLIN-TAZOB 3.375GM 100 ML IV ONE (14:15)
[2023-03-26] MEDS ORDERED: ACCU-CHEK COMFORT CURVE STRIP VI SCH (18:00)
[2023-03-26] MEDS ORDERED: InsuLIN REG 1unit/0.01ml Soln (100units/ml) SC SCH (18:00)
[2023-03-26] MEDS ORDERED: PIPERACILLIN-TAZOB 3.375GM 100 ML IV SCH (22:00)
== END 2023-03-26 19:12 | DRG 133 ==
LOC: ER 13:52 → TELE 17:30 → ICU WEST 03-25 06:43
PROVIDERS: ADMIT Nurse Practitioner Family; ATTEND Internal Medicine
PROC: 5A12012 Performance of Cardiac Output, Single, Manual (ICD-10-PCS; 2023-03-25)
PROC: 05HD33Z Insertion of Infusion Device into Right Cephalic Vein, Percutaneous Approach (ICD-10-PCS; 2023-03-25)
PROC: B54MZZA Ultrasonography of Right Upper Extremity Veins, Guidance (ICD-10-PCS; 2023-03-25)
PROC: 5A1935Z Respiratory Ventilation, Less than 24 Consecutive Hours (ICD-10-PCS; principal; 2023-03-26)
PROC: 0BH17EZ Insertion of Endotracheal Airway into Trachea, Via Natural or Artificial Opening (ICD-10-PCS; 2023-03-26)
DX: J96.01 Acute respiratory failure with hypoxia (principal); K72.00 Acute and subacute hepatic failure without coma; N17.0 Acute kidney failure with tubular necrosis; E11.10 Type 2 diabetes mellitus with ketoacidosis without coma; G93.40 Encephalopathy, unspecified; K92.2 Gastrointestinal hemorrhage, unspecified; D69.6 Thrombocytopenia, unspecified; E87.4 Mixed disorder of acid-base balance; Z99.11 Dependence on respirator [ventilator] status; I46.9 Cardiac arrest, cause unspecified; E87.1 Hypo-osmolality and hyponatremia; E66.01 Morbid (severe) obesity due to excess calories; I10 Essential (primary) hypertension; Z20.822 Contact with and (suspected) exposure to COVID-19; F19.10 Other psychoactive substance abuse, uncomplicated; I16.1 Hypertensive emergency; E78.5 Hyperlipidemia, unspecified; E87.5 Hyperkalemia; F15.10 Other stimulant abuse, uncomplicated; F17.210 Nicotine dependence, cigarettes, uncomplicated; Z82.49 Family history of ischemic heart disease and other diseases of the circulatory system; Z91.148 Patient's other noncompliance with medication regimen for other reason; Z91.199 Patient's noncompliance with other medical treatment and regimen due to unspecified reason; Z68.38 Body mass index [BMI] 38.0-38.9, adult; G93.1 Anoxic brain damage, not elsewhere classified
CPT/HCPCS: 36415; 36600; 71045; 74176; 80048; 80053; 80061; 80307; 80320; 81001; 82010; 82270; 82805; 82962; 83036; 83605; 83690; 83735; 83930; 84100; 84132; 84484; 85007; 85025; 85027; 85610; 85730; 87040; 87045; 87070; 87077; 87081; 87186; 87205; 87426; 87427; 92950; 93005; 94002; 94003; 94640; 96365; 96367; 96375; 96376; 99291; C9113; G0378; J0171; J0330; J0461; J1815; J2250; J2405; J2543; J2704